=== PATIENT | male | born 2000 | race Caucasian/White ===

== ENCOUNTER 2020-02-25 12:07 | Emergency (ER) | payer MEDICAID, SELFPAY ==
[2020-02-25 12:50] VITALS: BP 120/72; PULSE 64; RESP 19; TEMP 37.1; O2SAT 99; BMI 25.0
--- NOTE | 2020-02-25 13:20 | HMH.EDUTC ---
[facility] [place] Impression: Encounter to obtain excuse from work Disposition: Home, Self-Care Condition on Discharge: Good Instructions: DI for Headache Additional Instructions: Follow up with your family Doctor if cyst continues to get larger Return if needed Straight to ER if any life threatening symptoms Referrals: PCP,No [Primary Care Provider] - As needed Forms: Work/School Release Time of Disposition: 13:23 Medical Decision Making - Tushar Inquiry Pt receiving controlled substance: No Tushar was queried for this patient: No Vital Signs: 02/25/20 12:50 Temperature 98.7 F Temperature Source Oral Pulse Rate [Right Brachial] 64 Respiratory Rate 19 Blood Pressure [Right Arm] 120/72 Blood Pressure Mean [Right Arm] 88 Blood Pressure Source [Right Arm] Automatic Cuff Blood Pressure Position [Right Arm] Sitting 02 Sat by Pulse Oximetry 99 Oxygen Delivery Method Room Air [facility] [place] - General Stated complaint: Knot on back of head Time Seen by Provider: 02/25/20 12:50 Mode of Arrival: Ambulatory Source of Information: Patient Limitations: No Limitations Description of Symptoms (Recalled from Triage Doc. by RN): PATIENT C/O KNOT ON BACK OF HIS NECK THAT IS CAUSING MIGRAINES X 2 DAYS HEENT Symptoms (Recalled from RN notes): Yes Resp Symptoms (Recalled from RN notes): No Skin Symptoms (Recalled from RN notes): No MS Symptoms (Recalled from RN notes): No Functional Status (Recalled from RN notes): WNL - History of Present Illness Provider Complaint: Patient state that he noticed he has had headache off and on for the last couple of days and noticed small swollen lymph node on the left side of his neck and thinks that may have caused his headache and he wasnt able to work yesterday and today and wanted a doctors not State sthat headache is gone today - Related Data Allergies Allergy/AdvReac Type Severity Reaction Status Date / Time No Known Allergies Allergy Verified 02/25/20 13:02 - Worker's Comp Is this a Worker's Comp case?: No [facility] History - Hepatitis A Screen Drug use history?: No High risk sexual behaviors?: No History of sexually transmitted infection?: No Currently employed?: No Childcare worker?: No Do you have indoor plumbing?: Yes Do you have electricity?: Yes Attestation statement:: This patient has been screened for Hepatitis A risk factors. I have reviewed the patient's past medical history: Yes - Social History Alcohol Intake: never Occupational Status: other ROS Obtained: Yes All systems reviewed & no additional complaints, Yes Systems reviewed as appropriate & no additional complaints - Constitutional Constitutional: Reports system reviewed and no additional complaints, except as docu, Reports headache(s) Physical Exam - General General appearance: alert, in no apparent distress - Expanded Head Exam 1 - small pea sized cyst like lesion felt hard and moveable no redness no warmth Patient unsure how long has been there - Eye Eye exam: Present: normal appearance, PERRL, EOMI - Respiratory Respiratory exam: Present: normal lung sounds bilaterally. Absent: respiratory distress - Cardiovascular Cardiovascular exam: Present: regular rate, normal rhythm. Absent: JVD - Abdominal Exam Abdominal exam: Present: soft, normal bowel sounds. Absent: distention, tenderness, guarding - Neurological Exam Neurological exam: Present: alert, oriented X3
[2020-02-25 13:21] VITALS: BP 120/72; PULSE 64; RESP 19; TEMP 37.1; O2SAT 99
== END 2020-02-25 13:26 | disposition home or self-care (01) ==
PROVIDERS: Emergency Provider Nurse Practitioner
DX: Z02.89 Encounter for other administrative examinations (principal); R22.1 Localized swelling, mass and lump, neck; R51.9 Headache, unspecified
CPT/HCPCS: 99202; G0463

== ENCOUNTER 2020-12-03 19:21 | Emergency (ER) | payer MEDICAID, SELFPAY ==
[2020-12-03 19:22] VITALS: BP 150/83; PULSE 75; RESP 16; TEMP 36.9; O2SAT 99; BMI 25.0
--- NOTE | 2020-12-03 19:45 | HMH.EDGENADL ---
ED Disposition Condition on Discharge: Good - Critical Care Critical Care Time: No <Benigno Mejia - Last Filed: 12/03/20 19:53> <Craig Ellison - Last Filed: 12/03/20 20:47> Clinical Impression: Testicular pain, left Disposition: Home, Self-Care Instructions: DI for Acute Abdominal Pain, DI for Epididymitis Additional Instructions: use meds and see pcp for follow up Prescriptions: levoFLOXacin [Levaquin 500mg tab] 500 mg PO DAILY #7 tab Transmission Status: Pending to [facility] Ketorolac Tromethamine [Toradol 10mg tablet] 10 mg PO Q6HP PRN #8 tab MDD 40mg/day PRN Reason: Moderate To Severe Pain Transmission Status: [facility] to [facility] Referrals: Provider,MD Oni [Primary Care Provider] - Kit Peguero MD [Staff Physician] - Attestation: On 12/03/20, the high probability of a clinically significant, sudden or life threatening deterioration of the following system(s) required my full and direct attention, intervention and personal management. The time I documented below is in addition to time spent performing reported procedures but includes the following listed in this critical care notation. Medical Decision Making - Tushar Inquiry Pt receiving controlled substance: No <Benigno Mejia - Last Filed: 12/03/20 19:53> - Lab Data Lab results reviewed: Yes: I reviewed the patient's lab results. Result diagrams: 12/03/20 19:44 12/03/20 19:44 - CT Data CT Scan: Abdomen, Pelvis Time Received: 20:[address] Reviewed: Yes: I have viewed the radiologist's interpretation Preliminary Findings: Normal/NAD - US Data US Images: Other (scrotal) ED US Reviewed: Yes: I discussed the US results w/the radiologist Preliminary Findings: Normal/NAD <Craig Ellison - Last Filed: 12/03/20 20:47> Vital Signs: 12/03/20 19:22 Temperature 98.4 F Temperature Source Oral Pulse Rate [Right Radial] 75 Respiratory Rate 16 Blood Pressure [Right Arm] 150/83 H Blood Pressure Mean [Right Arm] 105 Blood Pressure Source [Right Arm] Automatic Cuff Blood Pressure Position [Right Arm] Sitting 02 Sat by Pulse Oximetry 99 Oxygen Delivery Method Room Air - Lab Data Lab Results 12/03/20 19:35: Urine Color Yellow, Urine Appearance Clear, Urine pH 7.0, Ur Specific [place] 1.025, Urine Protein Negative, Urine Glucose (UA) Negative, Urine Ketones Negative, Urine Blood Negative, Urine Nitrate Negative, Urine Bilirubin Negative, Urine Urobilinogen 1.0, Ur Leukocyte Esterase Negative, Ur Squamous Epith Cells Occasional 12/03/20 19:44: WBC 11.4, RBC 4.95, Hgb 15.7, Hct 45.2, MCV 91.3, MCH 31.8 H, MCHC 34.8, RDW 12.9, Plt Count 352, MPV 7.6, Neut % (Auto) 49.6, Lymph % (Auto) 36.7, [place] % (Auto) 7.3, Eos % (Auto) 5.4, Baso % (Auto) 1.1, Neut # (Auto) 5.6, Lymph # (Auto) 4.2, [place] # (Auto) 0.8, Eos # (Auto) 0.6 H, Baso # (Auto) 0.1, ESR 7 12/03/20 19:44: Sodium 140, Potassium 4.0, Chloride 101, Carbon Dioxide 28, Anion Gap 15.0, BUN 15, Creatinine 0.80, Estimated Creat Clear 176, Estimated GFR 125, Est GFR ( Amer) 151, Glucose 104 H, Calcium 9.4, Total Bilirubin 0.6, AST 61 H, ALT 25, Alkaline Phosphatase 86, Total Protein 7.8, Albumin 4.5, Globulin 3.3 H, Albumin/Globulin Ratio 1.4 Orders (Tests/Meds): ED MEDICATIONS Generic Name Dose Route Start Last Admin Trade Name Freq PRN Reason Stop Dose Admin Sodium Chloride 1,000 mls @ 999 mls/hr 12/03/20 20:00 Sod Chlor 0.9% 1000ml Bag IV 12/03/20 21:00 .Q1H1M JEREMY Discontinued Medications Generic Name Dose Route Start Last Admin Trade Name Freq PRN Reason Stop Dose Admin Iopamidol 75 ml 12/03/20 20:19 12/03/20 20:20 Iopamidol-370 (76%);100ml Bottle IV 12/03/20 20:20 75 ml ONCE ONE Administration Ketorolac Tromethamine 30 mg 12/03/20 19:54 12/03/20 20:02 Ketorolac 30mg/Ml Vial IV 12/03/20 19:55 30 mg ONCE ONE Administration Sodium Chloride 10 ml 12/03/20 20:19 12/03/20 20:20 Sodium Chlorid
[2020-12-03 19:47] LABS: Microscopic, Urine URINE MICROSCOPIC (MICROSCOPIC)
[2020-12-03 19:50] LABS: Appearance,Urine CLEAR (Clear); Bilirubin,Urine Negative (Negative); Blood, Urine Negative (Negative); Color,Urine YELLOW (Yellow); Glucose,Urine (UA) Negative (Negative); Ketones,Urine Negative (Negative); Leukocyte Esterase,Urine Negative (Negative); Nitrate,Urine Negative (Negative); Protein,Urine Negative (Negative); Specific Gravity, Urine 1.025 (1.005-1.030)
--- NOTE | 2020-12-03 19:54 | CT_ITS ---
PROCEDURE INFORMATION: Exam: CT Abdomen And Pelvis With Contrast Exam date and time: 12/03/2020 7:54 PM Age: 19 years old Clinical indication: Abdominal pain; Generalized; Additional info: Llq pain TECHNIQUE: Imaging protocol: Computed tomography of the abdomen and pelvis with contrast. Radiation optimization: All CT scans at this facility use at least one of these dose optimization techniques: automated exposure control; mA and/or kV adjustment per patient size (includes targeted exams where dose is matched to clinical indication); or iterative reconstruction. Contrast material: ISOVUE; Contrast volume: 75 ml; Contrast route: IV; COMPARISON: No relevant prior studies available. FINDINGS: Liver: Normal. No mass. Gallbladder and bile ducts: Normal. No calcified stones. No ductal dilation. Pancreas: Normal. No ductal dilation. Spleen: Normal. No splenomegaly. Adrenal glands: Normal. No mass. Kidneys and ureters: Normal. No hydronephrosis. Stomach and bowel: Unremarkable. No obstruction. No mucosal thickening. Appendix: No evidence of appendicitis. Intraperitoneal space: Normal. No significant fluid collection. Vasculature: Unremarkable. No abdominal aortic aneurysm. Lymph nodes: Unremarkable. No enlarged lymph nodes. Urinary bladder: Unremarkable as visualized. Reproductive: Unremarkable as visualized. Bones/joints: Unremarkable. No acute fracture. Soft tissues: Soft tissues are normal. IMPRESSION: No acute findings.
--- NOTE | 2020-12-03 19:54 | US_ITS ---
PROCEDURE INFORMATION: Exam: US Scrotum and Artery or Vein of the Abdominal and/or Reproductive Organs, Limited Scrotum Exam date and time: 12/03/2020 7:54 PM Age: 19 years old Clinical indication: Scrotum pain; Additional info: Testicular pain left no trauma TECHNIQUE: Imaging protocol: Real-time ultrasound of the scrotum. Real-time duplex ultrasound scan of the arterial or venous flow with [place] scale, color Doppler flow and spectral waveform analysis with image documentation. Limited Duplex exam focused of the scrotum. Duplex images required to evaluate for torsion and other vascular conditions. COMPARISON: CT ABDOMEN PELVIS W CON 12/03/2020 8:11 PM FINDINGS: Right testicle: Right testicle measures 4.2 x 4.4 x 1.9 cm. Blood flow is demonstrated to the right testicle. Left testicle: Left testicle measures 3.4 x 4.8 x 1.9 cm. Blood flow is demonstrated to the left testicle. Epididymides: Normal. Scrotum: Normal. Other findings: No intratesticular masses. No evidence of testicular torsion. No evidence of free fluid. IMPRESSION: 1. No intratesticular masses. 2. No evidence of testicular torsion. 3. No evidence of free fluid.
[2020-12-03 20:00] VITALS: BP 126/78; PULSE 80; RESP 16; O2SAT 99
[2020-12-03 20:05] LABS: Basophils # 0.1 K/mm3 (0-0.2); Basophils % 1.1 % (0.1-2.0); Eosinophils # 0.6 K/mm3 (0.0-0.4); Eosinophils % 5.4 % (0.1-12.0); Hematocrit 45.2 % (42.0-52.0); Hemoglobin 15.7 g/dL (14.1-18.0); Lymphocytes # 4.2 K/mm3 (0.7-4.5); Lymphocytes % 36.7 % (10-50); Mean Corpuscular HGB Conc 34.8 g/dL (31.8-35.4); Mean Corpuscular Hemoglobin 31.8 pg (27.0-31.2); Mean Corpuscular Volume 91.3 fl (80-94); Mean Platelet Volume 7.6 fl (7.4-10.4); Monocytes # 0.8 K/mm3 (0.1-1.0); Monocytes % 7.3 % (1.7-9.3); Neutrophils # 5.6 K/mm3 (1.8-7.8); Neutrophils % 49.6 % (37.0-80.0); Platelet Count 352 K/mm3 (142-424); Red Blood Count 4.95 M/mm3 (4.60-6.20); Red Cell Distribution Width 12.9 % (11.5-17.5); White Blood Count 11.4 K/mm3 (4.5-13.0)
[2020-12-03 20:08] LABS: Squamous Epithelial Cell,Urine Occasional #/hpf (0-5)
[2020-12-03 20:20] LABS: Alanine Aminotransferase 25 U/L (12-78); Albumin Level 4.5 g/dl (3.5-5.0); Albumin/Globulin Ratio 1.4 (1.1-1.8); Alkaline Phosphatase 86 U/L (38-126); Aspartate Amino Transferase 61 U/L (17-59); Bilirubin,Total 0.6 mg/dl (0.2-1.3); Blood Urea Nitrogen 15 mg/dl (9-20); Calcium 9.4 mg/dl (8.4-10.2); Carbon Dioxide 28 mmol/L (22.0-30.0); Chloride 101 mmol/L (98-107); Creatinine Clearance Estimated 176 mL/min (50-200); Estimated Glomerular Filt Rate 125 ml/min (>60); GFR (African American) 151 ML/MIN (>60); Globulin 3.3 g/dL (1.3-3.2); Glucose 104 mg/dl (74-100); Sodium 140 mmol/L (136-145); Total Protein,Serum 7.8 g/dl (6.3-8.2)
[2020-12-03 20:25] LABS: C-Reactive Protein 0.6 mg/L (0-4)
[2020-12-03 20:40] LABS: Procalcitonin 0.039 ng/mL (0.0-2.0)
[2020-12-03 20:41] LABS: Erythrocyte Sedimentation Rate 7 mm/hr (0-15)
[2020-12-03 21:00] VITALS: BP 123/71; PULSE 78; O2SAT 99
[2020-12-03 21:02] VITALS: BP 147/81; PULSE 103; RESP 20; TEMP 37.1; O2SAT 98
[2020-12-07 22:22] LABS: Neisseria gonorrhoeae, NAA Negative (Negative)
== END 2020-12-03 21:13 | disposition home or self-care (01) ==
PROVIDERS: Emergency Medicine; Emergency Provider Family Medicine
DX: N50.812 Left testicular pain (principal)
CPT/HCPCS: 74177; 76870; 80053; 81001; 84145; 85025; 85651; 86140; 87491; 87591; 96365; 96375; 99283; Q9967

== ENCOUNTER 2023-06-29 07:57 | Emergency (ER) | payer OTHER, SELFPAY ==
--- NOTE | 2023-06-29 08:01 | PC.NURSE ---
Dr. Lo at BS for pt eval
--- NOTE | 2023-06-29 08:02 | PC.NURSE ---
dr gould at bedside
[2023-06-29 08:07] VITALS: BP 132/92; PULSE 114; RESP 20; TEMP 37; O2SAT 96; BMI 39.6
--- NOTE | 2023-06-29 08:08 | HMH.EDGENADL ---
Discharge Plan Disposition Patient Disposition: Home, Self-Care Prescriptions Prescriptions: No Action levofloxacin 500 MG tablet 500 mg PO DAILY Qty: 7 0RF ketorolac 10 MG tablet 10 mg PO Q6HP MDD 40mg/day PRN (Reason: Moderate To Severe Pain) Qty: 8 0RF Rx Instructions: Therapy initiated with IV/IM dose Referrals Follow up/Referrals: Provider,Referral, MD [Primary Care Provider] - See instructions Activity Restrictions/Add. Instructions Additional Instructions/Restrictions: Take Tylenol 1000 mg every 6 hours (4 times daily) and ibuprofen 400 mg every 6 hours (4 times daily) as needed with food and water to prevent GI upset and kidney damage. Be sure to stay plenty hydrated. See your family doctor within 48 hours to establish care and talk to them about repeat blood work to ensure improvement and no worsening of symptoms. If you have any other concerning signs or symptoms, return to the emergency department for further evaluation. Clinical Impressions Clinical Impression: Acute viral syndrome Migraine Qualifiers: Migraine type: ophthalmoplegic Intractability: intractable Qualified Code(s): G43.B1 - Ophthalmoplegic migraine, intractable Stand Alone Forms Stand Alone Forms: Work/School Release Discharge ED Provider: Jarod Lo General Adult HPI General Chief complaint: Headache Stated complaint: dizzy headache lower back pain, body pain Time Seen by Provider: 06/29/23 08:00 Mode of Arrival: Ambulatory History of Present Illness HPI narrative: Please note that above description of symptoms, in this electronic medical record under categorization of recalled from ER triage doctor by RN are reflective of an initial nursing assessment, however, is not reflective of my full history and physical exam that was personally taken and clarified. Consequentially, this preceding description of symptoms, which may include the patient's categorized chief complaint in the EMR, do not reflect my personal clinical impression, and the ultimate description of history of present illness and patient stated complaints should be deferred to this section of the note. Unless stated otherwise or congruent with this section of the note, additional signs, symptoms, or incongruence should be interpreted as inaccurate with my clinical impression. Related Data Previous Rx's Medication Instructions Recorded ketorolac 10 mg tablet 10 mg PO Q6HP PRN Moderate To 12/03/20 Severe Pain #8 tabs levofloxacin 500 mg tablet 500 mg PO DAILY #7 tabs 12/03/20 Allergies Allergy/AdvReac Type Severity Reaction Status Date / Time No Known Allergies Allergy Verified 02/25/20 13:02 [facility] Disclaimer: The information contained in this section may have been updated after the patient was seen, as this information can be updated by other users. Social History Smoking Status: Never smoker alcohol intake: never current occupational status: other Travel in the last 8 weeks: None ROS Obtained: Yes All systems reviewed & no additional complaints except as documented Physical Exam General General appearance: alert and in no apparent distress Head Head exam: atraumatic and normocephalic Eye Eye exam: Present normal appearance, PERRL and EOMI ENT ENT exam: Present mucous membranes moist Neck Neck exam: Present normal inspection, full ROM and trachea midline Respiratory Respiratory exam: Present normal lung sounds bilaterally; Absent respiratory distress, wheezes, stridor, accessory muscle use or prolonged expiratory phase Cardiovascular Cardiovascular exam: Present regular rate, normal rhythm and normal heart sounds; Absent systolic murmur or diastolic murmur Abdominal Exam Abdominal exam: Present soft; Absent distention, tenderness, guarding, rebound or rigidity Extremities Exam Extremities exam: Absent edema Neurological Exam Neurological exam: Present alert, oriented X3, CN II-XII intact and normal gait; Absent motor sensory deficit Skin Skin exam: Present warm and dry; Absent diaphoresis or erythema Medical Decision Making Medical Records Medical records reviewed: Yes I reviewed the patient's medical records. Tushar Inquiry Pt receiving controlled substance: No Tushar was queried for this patient: No Vital Signs: 06/29/23 08:07 Temperature 98.6 F Temperature Source Oral Pulse Rate [Left Radial] 114 H Respiratory Rate 20 Blood Pressure [Right Arm] 132/92 H Blood Pressure Mean [Right Arm] 105 02 Sat by Pulse Oximetry 96 Oxygen Delivery Method Room Air Lab Data Lab Results 06/29/23 08:20: WBC 7.4, RBC 5.26, Hgb 16.4, Hct 47.8, MCV 90.8, MCH 31.2, MCHC 34.4, RDW 13.8, Plt Count 182, MPV 7.7, Neut % (Auto) 80.4 H, Lymph % (Auto) 14.0, [place] % (Auto) 4.4, Eos % (Auto) 0.3, Baso % (Auto) 1.0, Neut # (Auto) 6.0, Lymph # (Auto) 1.0, [place] # (Auto) 0.3, Eos # (Auto) 0.0, Baso # (Auto) 0.1, Sodium 133 L, Potassium 4.2, Chloride 99, Carbon Dioxide 25, Anion Gap 13.2, BUN 15, Creatinine 1.00, Estimated Creat Clear 156, Estimated GFR 93, Est GFR ( Amer) 113, Glucose 131 H, Calcium 9.2, Magnesium 1.9, Total Bilirubin 1.5 H, AST 155 H, ALT 142 H, Alkaline Phosphatase 85, Total Protein 7.7, Albumin 4.5, Globulin 3.2, Albumin/Globulin Ratio 1.4 06/29/23 08:20 06/29/23 08:20 Orders (Tests/Meds): ED MEDICATIONS Discontinued Medications Generic Name Dose Route Start Last Admin Trade Name Manuelq PRN Reason Stop Dose Admin Acetaminophen 1,000 mg 06/29/23 08:09 06/29/23 08:34 Acetaminophen 500mg Tab PO 06/29/23 08:10 1,000 mg ONCE ONE Administration Dexamethasone Sodium Phosphate 10 mg 06/29/23 08:09 06/29/23 08:40 Dexamethasone 4mg/Ml 1ml Vial IV 06/29/23 08:10 10 mg ONCE ONE Administration Diphenhydramine HCl 25 mg 06/29/23 08:09 06/29/23 08:38 Diphenhydramine 50mg/Ml Vial IV 06/29/23 08:10 25 mg ONCE ONE Administration Sodium Chloride 1,000 mls @ 999 mls/hr 06/29/23 08:10 06/29/23 08:45 Sod Chlor 0.9% 1000ml Bag IV 06/29/23 09:10 999 mls/hr .Q1H1M ONE Administration Ketorolac Tromethamine 15 mg 06/29/23 08:09 06/29/23 08:37 Ketorolac 30mg/Ml Vial IV 06/29/23 08:10 15 mg ONCE ONE Administration Prochlorperazine Edisylate 10 mg 06/29/23 08:09 06/29/23 08:33 Prochlorperazine 10mg/2ml Vial IV 06/29/23 08:10 10 mg ONCE ONE Administration ORDERS Category Date Time Status CBC w/Auto Diff [Complete Blood Count Auto Diff] Stat Lab 06/29/23 08:20 Completed CMP [Comprehensive Metabolic Panel] Stat Lab 06/29/23 08:20 Completed MAG [Magnesium] Stat Lab 06/29/23 08:20 Completed Monoscreen (Rapid) Stat Lab 06/29/23 10:04 Ordered Medical Decision Narrative: 22-year-old male history of migraines, 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 Patient states that the symptoms have been going on for about a week. States that he has been sleeping hot, waking up in sweats. Today, workup diaphoretic, had headache, nausea. Open his eyes, realized that his vision was gone. This lasted a couple minutes. He took ibuprofen, resolved, patient's vision is normal at this point, but his head feels foggy. No balance complaints, visual acuity changes, nausea or vomiting, overt/measured fevers, sick contacts, diarrhea, jaw claudication, dysuria, hematuria, cough, or any other concerns. Not currently having any pain or vision changes. History was obtained via conversation with patient. On arrival, patient hemodynamically stable, alert, oriented x4, appropriate, GCS 15, moving all extremities spontaneously, pupils equal and reactive to light. Full physical exam performed and significant for he is neurologically intact with NIHSS 0. Cranial nerve, cerebellar, motor and sensory exams normal. No meningismus, range of motion of neck difficulty. Patient ambulatory without issue. Cardiopulmonary exam within normal limits, pulses equal and symmetric. Differential includes migraine, optical migraine, viral syndrome, among others. Patient was given acetaminophen, Toradol, Decadron, Benadryl, Compazine, fluid bolus for symptomatic management and correction of underlying abnormalities. Workup independently interpreted and significant for nonactionable CBC. Chemistry with mildly elevated LFTs AST 155, ALT 142, bilirubin 1.5 with normal alkaline phosphatase. CT head and CTA head and neck was considered, but given patient's history of optic migraines with similar symptoms and similar presentation, per him, this was deemed unnecessary at this time. Especially given resolution of symptoms, radiation burden not justified.On reevaluation, patient states he feels much better, just tired. Unknown if this is from patient's clinical syndrome or from Benadryl, but he states he is ready to be discharged. I feel this is appropriate. Recommend he follow-up with his family doctor for repeat labs to make sure improvement. Given patient presentation, workup, history, this most likely represents acute viral syndrome and optic migraine. Because patient at baseline without signs or symptoms of clinical decompensation, deemed appropriate for discharge. Results were relayed to patient who voiced understanding and were agreeable to outpatient management and follow up. I discussed my clinical impression with patient and answered all questions. At this time, the evidence for any other entities in the differential is insufficient to warrant any further testing or ED observation. This was explained as well. Advisory was given that persistent or worsening symptoms require further evaluation. I confirmed the understanding of this discussion. [employer]drinier Machine Operator disclaimer Much of this encounter note is an electronic cement despatch operator spoken language to printed text. Electronic cement despatch operator of the spoken language may permit errors. Although I have reviewed the note, some errors may still exist. Critical Care Critical Care Time Critical Care Time: No
[2023-06-29 08:29] LABS: Basophils # 0.1 K/mm3 (0-0.2); Eosinophils % 0.3 % (0.1-12.0); Hematocrit 47.8 % (42.0-52.0); Hemoglobin 16.4 g/dL (14.1-18.0); Mean Corpuscular HGB Conc 34.4 g/dL (31.8-35.4); Mean Corpuscular Hemoglobin 31.2 pg (27.0-31.2); Mean Corpuscular Volume 90.8 fl (80-94); Mean Platelet Volume 7.7 fl (7.4-10.4); Monocytes # 0.3 K/mm3 (0.1-1.0); Monocytes % 4.4 % (1.7-9.3); Neutrophils % 80.4 % (37.0-80.0); Platelet Count 182 K/mm3 (142-424); Red Blood Count 5.26 M/mm3 (4.60-6.20); Red Cell Distribution Width 13.8 % (11.5-17.5); White Blood Count 7.4 K/mm3 (4.8-10.8)
[2023-06-29] MEDS: PROCHLORPERAZINE 10MG/2ML VIAL 10 MG IV (08:33)
[2023-06-29] MEDS: ACETAMINOPHEN 500MG TAB 1000 MG PO (08:34)
[2023-06-29] MEDS: KETOROLAC 30MG/ML VIAL 15 MG IV (08:37)
[2023-06-29] MEDS: diphenhydrAMINE 50MG/ML VIAL 25 MG IV (08:38)
[2023-06-29] MEDS: DEXAMETHASONE 4MG/ML 1ML VIAL 10 MG IV (08:40)
[2023-06-29] MEDS: 0.9 % SODIUM CHLORIDE 1000ML 1,000 ML 999 ML IV (08:45)
[2023-06-29 09:01] LABS: Alanine Aminotransferase 142 U/L (12-78); Albumin Level 4.5 g/dl (3.5-5.0); Albumin/Globulin Ratio 1.4 (1.1-1.8); Alkaline Phosphatase 85 U/L (38-126); Anion Gap 13.2 mEq/L (5-15); Aspartate Amino Transferase 155 U/L (17-59); Bilirubin,Total 1.5 mg/dl (0.2-1.3); Blood Urea Nitrogen 15 mg/dl (9-20); Calcium 9.2 mg/dl (8.4-10.2); Carbon Dioxide 25 mmol/L (22.0-30.0); Chloride 99 mmol/L (98-107); Creatinine Clearance Estimated 156 mL/min (50-200); Estimated Glomerular Filt Rate 93 ml/min (>60); GFR (African American) 113 ML/MIN (>60); Globulin 3.2 g/dL (1.3-3.2); Glucose 131 mg/dl (74-100); Magnesium 1.9 mg/dl (1.6-2.3); Potassium 4.2 mmoL/L (3.5-5.1); Sodium 133 mmol/L (136-145); Total Protein,Serum 7.7 g/dl (6.3-8.2)
--- NOTE | 2023-06-29 09:15 | PC.NURSE ---
rounded on pt at this time. pt sleeping
[2023-06-29 10:07] VITALS: BP 101/57; PULSE 86; RESP 18; TEMP 37.2; O2SAT 97
[2023-06-29 10:46] LABS: Monoscreen (Rapid) Negative (Negative)
== END 2023-06-29 10:10 | disposition home or self-care (01) ==
PROVIDERS: Emergency Provider Emergency Medicine
DX: G43.B1 Ophthalmoplegic migraine, intractable (principal); R42 Dizziness and giddiness; M54.50 Low back pain, unspecified; E87.1 Hypo-osmolality and hyponatremia; B34.9 Viral infection, unspecified
CPT/HCPCS: 80053; 83735; 85025; 86318; 96361; 96374; 96375; 99284

== ENCOUNTER 2024-01-11 15:20 | Outpatient (CLI) | payer OTHER, SELFPAY ==
[2024-01-11 22:39] LABS: 3Hr Motility Quality Rapid Progression (Mod-Rapid); 3Hr Sperm Motility 90 % (50-60); Motility Quality Rapid Progression (Mod-Rapid); PH,Semen 8.5 (7.3-8.3); Semen Viscosity Watery (Normal); Sperm Motility 90 % (50-90); WBCs,Semen Trace
[2024-01-11 22:40] LABS: Sperm Morphology Normal (Normal)
[2024-01-11 23:57] LABS: Sperm Count 3457500 mil/mm3 (20-160)
== END 2024-01-11 23:59 | disposition home or self-care (01) ==
LOC: LAB.DROPOF 15:21
PROVIDERS: Visit Provider Obstetrics & Gynecology
DX: Z31.69 Encounter for other general counseling and advice on procreation (principal)
CPT/HCPCS: 89320